=== PATIENT | female | born 1990 | race Caucasian/White ===

== ENCOUNTER 2017-07-25 22:39 | Emergency (ER) | payer OTHER ==
[~2017-07-25] VITALS: Ht 154.9 cm; Wt 77.3 kg
[2017-07-25 22:51] VITALS: BP 115/63
--- NOTE | 2017-07-25 22:52 | NUR ---
URINE COLLECTED. PT RETURNED TO LOBBY
--- NOTE | 2017-07-25 23:44 | NUR ---
PT AMBULATED TO ER BED 12
--- NOTE | 2017-07-25 23:58 | NUR ---
27 YO F TO ER FOR ABD PAIN. EPIGASTRICK PAIN X1 DAY, PT STATES "IT FEELS LIKE REFLUX". PT STATES BEING 16-17 WKS WITH A HX OF GALLSTONES. DENIES ANY N/V/D, ABD SOFT, ROUND, NON TENDER. BS ACTIVE X4, NO OTHER MEDICAL C/O. PT STATES PAIN 3/10. ER MD MADE AWARE, WILL CONTINUE TO MONITOR
--- NOTE | 2017-07-26 00:05 | NUR ---
Patient being evaluated by physician at bedside.
[2017-07-26 00:54] VITALS: BP 116/62
--- NOTE | 2017-07-26 00:54 | NUR ---
Patient discharged with v/s stable. Written and verbal after care instructions given and explained. Patient alert, oriented and verbalized understanding of instructions. Ambulatory with steady gait. All questions addressed prior to discharge. ID band removed. Patient advised to follow up with PMD. Rx of TUMS given. Patient educated on indication of medication including possible reaction and side effects. Opportunity to ask questions provided and answered.
== END 2017-07-26 00:54 | disposition home or self-care (01) ==
LOC: MED 22:39
DX: O99.612 Diseases of the digestive system complicating pregnancy, second trimester (principal); K80.20 Calculus of gallbladder without cholecystitis without obstruction; Z3A.17 17 weeks gestation of pregnancy
CPT/HCPCS: 81002; 81025; 99283

== ENCOUNTER 2017-09-03 20:48 | Observation (INO) | payer OTHER ==
[~2017-09-03] VITALS: Ht 154.9 cm; Wt 81.7 kg
[2017-09-03 18:23] VITALS: BP 101/54
[2017-09-03 21:04] VITALS: BP 113/67
--- NOTE | 2017-09-03 21:07 | NUR ---
TO BED # 1 AMBULATORY, REPORT GIVEN TO ELISA RAMIREZ
--- NOTE | 2017-09-03 21:10 | NUR ---
PT ADMITS N/V X 1 DAY WITH EPIGASTRIC PAIN 8/10 RADIATION TO LOW BACK, PT 23 WEEKS ; SKIN IS INTACT, PINK/WARM/DRY; AAOX4, PERRL, WITH EVEN AND STEADY GAIT; LUNGS CLEAR BL, BREATHING UNLABORED; HR EVEN AND REGULAR, BL PERIPHERAL PULSES PRESENT; BS ACTIVE X4, NO TENDERNESS TO PALPATION, NO HEPATOSPLENOMEGALLY PALPATED, RESONANT TO PERCUSSION; PT DENIES ANY FEVER, CP, SOB, OR COUGH AT THIS TIME; PT STATES 8/10 PAIN AT THIS TIME; VSS; PATIENT POSITIONED FOR COMFORT; HOB ELEVATED; BEDRAILS UP X2; BED DOWN.
[2017-09-03] MEDS ORDERED: MORPHINE SULFATE 4 MG/ML SYR IVP ONE ×2 (21:20→23:15)
[2017-09-03] MEDS ORDERED: ONDANSETRON 4 MG/2 ML VIAL IVP ONE (21:20)
[2017-09-03] MEDS ORDERED: NACL 0.9% 1,000 ML IV SCH (21:20)
[2017-09-03] MEDS ORDERED: KETOROLAC 30 MG/ML VIAL IVP ONE (21:20)
[2017-09-03] MEDS ORDERED: FAMOTIDINE 20 MG/2 ML VIAL IVP ONE (21:20)
[2017-09-03 21:48] LABS: HEMATOCRIT 33.5 % (36-48); HEMOGLOBIN 11.3 g/dL (12.0-16.0); MEAN CORPUSCULAR HEMOGLOBIN 30 pg (27-31); MEAN CORPUSCULAR HGB CONC 34 g/dL (33-37); MEAN CORPUSCULAR VOLUME 88.2 fL (80-94); RED CELL DISTRIBUTION WIDTH 12.1 % (11.6-13.7); WHITE BLOOD COUNT (AUTO) 7.6 K/uL (4.8-10.8)
[2017-09-03 21:49] LABS: EOSINOPHILS % (AUTO) 0.4 % (0.0-4.0); MONOCYTES % (AUTO) 6.3 % (1.7-9.3); NEUTROPHILS % (AUTO) 80.1 % (42.2-75.2); PLATELET COUNT (AUTO) 237 K/uL (140-450)
[2017-09-03 21:50] LABS: BASOPHILS # (AUTO) 0.1 K/uL (0.00-0.22); BASOPHILS % (AUTO) 1.2 % (0.0-2.0); LYMPHOCYTES # (AUTO) 0.9 K/uL (2.5-16.5); MONOCYTES # (AUTO) 0.5 K/uL (0.8-1.0); NEUTROPHILS # (AUTO) 6.1 K/uL (1.8-7.7)
[2017-09-03] MEDS ORDERED: ACETAMINOPHEN EXTRA STRENGTH 500 MG TAB PO ONE (21:50)
[2017-09-03 22:19] LABS: BILIRUBIN,URINE 1+ (NEGATIVE); BLOOD, URINE NEGATIVE (NEGATIVE); COLOR,URINE YELLOW (YELLOW); LEUKOCYTE ESTERASE ,URINE 3+ (NEGATIVE); NITRITE, URINE NEGATIVE (NEGATIVE); UGLUCOSE NEGATIVE (NEGATIVE)
[2017-09-03 22:20] LABS: APPEARANCE,URINE HAZY (CLEAR)
[2017-09-03 22:30] LABS: ANION GAP 10.3 (8-16); CARBON DIOXIDE 25.9 mmol/L (21-32); POTASSIUM 3.2 mmol/L (3.5-5.1)
[2017-09-03 22:31] LABS: CREATININE 0.7 mg/dL (0.6-1.3); TOTAL BILIRUBIN 1.2 mg/dL (0.0-1.0)
[2017-09-03 22:32] LABS: ALBUMIN 2.9 g/dL (3.4-5.0)
[2017-09-03 23:35] LABS: RBC,URINE 0-5 (RARE) /HPF (0-5)
[2017-09-03] MEDS ORDERED: KCL 20 MEQ/WATER INJ PREMIX 100 ML IV ONE (23:35)
--- NOTE | 2017-09-04 00:23 | NUR ---
CALLED [facility] FOR BED FOR PT
[2017-09-04 00:55] VITALS: BP 121/76
--- NOTE | 2017-09-04 00:55 | NUR ---
Patient will be admitted to care of DR. NEWTON. Admited to MED SURG. Will go to room 119 A. Belongings list completed. Report to
--- NOTE | 2017-09-04 00:55 | NUR ---
RECEIVED PT FROM ER NURSE YUNIEL. PT ARRIVED TO UNIT VIA WHEELCHAIR. SHE IS AMBULATORY. AOX4-CALM. LEFT HAND IV #20G RUNNING KCL @50ML/HR AND NS 0.9% WIDE OPEN. SKIN INTACT. DISCUSSED PLAN OF CARE AND PT VERBALIZED UNDERSTANDING. NO S/S OF RESPIRATORY DISTRESS OR DISCOMFORT NOTED AT THIS TIME. ORIENTED PT TO ROOM, BED, CALL LIGHT, PHONE AND RESTROOM. BED IN LOWEST POSITION, BOTH SIDE RAILS UP AND BED BREAKS LOCKED. BED SIDE TABLE AND CALL LIGHT ARE WITHIN REACH. MRSA COLLECTED. VITAL SIGNS TOLERATED WELL AND WITHIN NORMAL LIMITS. WILL CONTINUE TO MONITOR.
--- NOTE | 2017-09-04 01:40 | NUR ---
KCL IS COMPLETE. NA 0.9% BAG WAS INFUSING WITH THE KCL TO DECREASE PAIN. PT TOLERATED WELL. DISCONNECTED IVF. NO ORDERS FOR IVF AT THIS TIME SINCE BAG OF NS THAT WAS WIDE OPEN WAS COMPLETED IN ER PER ER NURSE ELISA.
[2017-09-04] MEDS ORDERED: ONDANSETRON 4 MG/2 ML VIAL IVP PRN (01:50)
[2017-09-04] MEDS ORDERED: ACETAMINOPHEN 325 MG TAB PO PRN (01:50)
[2017-09-04] MEDS ORDERED: MORPHINE SULFATE 2 MG/ML SYR IVP PRN ×2 (01:50→11:32)
--- NOTE | 2017-09-04 01:50 | NUR ---
DR. JOSE IS ON-CALL FOR DR. PICKENS. SPOKE TO MD ABOUT DIET AND PAIN MEDICATION ORDERS. HE ADVISED ME TO CONTINUE PREVIOUSLY USED MEDICATIONS FROM ER SUCH MORPHINE, ZOFRAN AND TYLENOL. SHE IS TO CONTINUE A REGULAR DIET.
--- NOTE | 2017-09-04 03:15 | NUR ---
PT C/O EPIGASTRIC PAIN 11/22. PT WAS GIVEN MORPHINE IN THE ER AND WAS TOLD THE RISKS AND BENEFITS OF TAKING MORPHINE FOR SEVERE PAIN. READ WARNING LABEL ON USING MORPHINE WHILE HOWEVER SHE SAID SHE STILL WANTED THE MEDICATION. MORPHINE WAS ADMINISTERED. PT TOLERATED WELL. NO S/S OF RESPIRATORY DISTRESS. WILL CONTINUE TO MONITOR.
--- NOTE | 2017-09-04 04:30 | NUR ---
PT REQUESTING SNACK. GAVE JELLO AND CRANBERRY JUICE. ADVISED PT ON POSSIBLE EPIGASTRIC PAIN WITH FOOD DUE TO PANCREATITIS. PT STILL DECIDED TO HAVE SNACK. WILL CONTINUE TO MONITOR.
--- NOTE | 2017-09-04 05:09 | NUR ---
L&D NURSE MIYA CHECKED THE HEART AND SAID IT WAS IN A RANGE BETWEEN 133-140. PT TOLERATED WELL. NO S/S OF RESPIRATORY DISTRESS OR DISCOMFORT AT THIS TIME. WILL CONTINUE TO MONITOR. Addendum: 09/04/17 at 0511 by Linda Aguirre RN HEART TONES ARE WITHIN NORMAL LIMITS.
--- NOTE | 2017-09-04 07:25 | NUR ---
ENDORSED PT CARE TO DAY SHIFT NURSE ESA FOR CONTINUITY OF CARE.
--- NOTE | 2017-09-04 07:30 | NUR ---
RECEIVED ON BED AAOX4. NO SOB NOTED. NO C/O PAIN AT THIS TIME. IV TO LT HAND PATENT AND INTACT. CHEST CLEAR. ABDOMEN SOFT, BOWEL SOUNDS PRESENT. NO EDEMA NOTED. INSTRUCTED PT TO CALL FOR ASSISTANCE. CALL LIGHT WITHIN REACH, PT VERBALIZED UNDERSTANDING.
[2017-09-04 08:00] VITALS: BP 115/67
--- NOTE | 2017-09-04 08:42 | NUR ---
SPOKE WITH DR. Jeremias KELLER OVER THE PHONE REGARDING THE CONSULT. DR. KELLER STATED HE WILL COME TO SEE PT TODAY. DR. APPIAH NOTIFIED.
[2017-09-04] MEDS ORDERED: POTASSIUM CHL 20MEQ/D5-NS 1,000 ML IV SCH (08:45)
--- NOTE | 2017-09-04 09:58 | NUR ---
SPOKE WITH ROBERTO FROM [facility] ([facility]ER[facility]) AND UPDATED WITH PT'S STATUS. WES STATED SHE WILL CALL DR. APPIAH BACK IF PT IS ACCEPTED.
--- NOTE | 2017-09-04 10:13 | NUR ---
PATIENT HAS BEEN SCREENED AND CATEGORIZED MODERATE NUTRITION RISK. PATIENT WILL BE SEEN WITHIN 3-5 DAYS OF ADMISSION. 09/06/17 09/08/[address]
--- NOTE | 2017-09-04 10:15 | NUR ---
HEART TONE MONITORING DONE BY L&D ASHLEY RENATO. 156 BEATS/MIN.
--- NOTE | 2017-09-04 10:43 | NUR ---
DR. APPIAH RECEIVED A CALL FROM DR. BARTH THAT HE IS NOT ACCEPTING THE PT GI CONSULT. DR APPIAH STATED HE WILL TRY [facility]. [facility] NOTIFIED. PERFECTO TOOL OPERATOR MADE AWARE.
--- NOTE | 2017-09-04 11:17 | NUR ---
JENNIFER MCQUEEN SPOKE WITH DR. APPIAH REGARDING TRANSFER AND HE GAVE HIS NUMBER TO GIVE TO [facility] IF NEEDED FOR DOCTOR TO DOCTOR REPORT. INITIAL REVIEW AND ORDER FOR TRANSFER TO HIGHER LEVEL OF CARE FAXED TO [facility] [phone] PH# [phone]. SPOKE WITH [facility] JENNIFER SULTANA AND SHE SAID SHE WILL WORK ON IT AND WILL CALL BACK WITH THE AUTHORIZATIONS FOR THE TRANSFER. FAXED CLINICAL INQUIRY TO [facility] [phone] PH# [phone] AND SPOKE WITH JOSE WHO CONFIRMED THAT THEY HAVE RECEIVED THE FAX AND I GAVE HER THE NUMBER TO DR. APPIAH FOR DOCTOR TO DOCTOR REPORT IF NEEDED AND THE NUMBER TO THE NURSING STATION WHERE PATIENT IS IN CASE THE TRANSFER HAPPENS AT A LATER TIME TODAY. Addendum: 09/04/17 at 1244 by Anya Echevarria CM PER JOSE OF [facility], THEY WILL WORK ON IT AND SEE IF THEY CAN GET AN ACCEPTING DOCTOR.
[2017-09-04 11:19] LABS: ALBUMIN 2.6 g/dL (3.4-5.0); ANION GAP 9.9 (8-16); CARBON DIOXIDE 24.1 mmol/L (21-32); CREATININE 0.6 mg/dL (0.6-1.3); TOTAL BILIRUBIN 0.9 mg/dL (0.0-1.0)
--- NOTE | 2017-09-04 12:39 | NUR ---
CM NOTE ER [facility] JENNIFER SULTANA PH# [phone], FOR [facility] AUTH# [id number], FOR [facility] AUTH# [id number]. CHARGE NURSE JU SUN.
--- NOTE | 2017-09-04 14:13 | NUR ---
CM NOTE PER STEPHEN OF [facility] PH# [phone], THEY ARE STILL WORKING ON GETTING AN ACCEPTING OB DOCTOR. I MADE SURE THAT STEPHEN OF [facility] HAS THE NUMBER OF DR. APPIAH FOR DOCTOR TO DOCTOR REPORT AND THE NUMBER TO THE NURSING STATION WHERE PATIENT IS IN CASE THE TRANSFER HAPPENS AT A LATER TIME TODAY. CHARGE NURSE JU SUN.
--- NOTE | 2017-09-04 15:20 | NUR ---
STEPHEN FROM [facility] CALLED ( ), PT'S ACCEPTING PHYSICIAN IS DR. MELISSA. PT WILL BE GOING TO UNIT 3200. NUMBER TO CALL FOR REPORT: [phone]. CHARGE NURSE JU NOTIFIED.
--- NOTE | 2017-09-04 16:00 | NUR ---
REPORT GIVEN TO ELIANA-[facility]AS[facility]OOM ATTENDANT NURSE AT [facility] [address]. ELIANA STATED THEY WILL GIVE THE ROOM NUMBER WHEN THE PT GET THERE.
--- NOTE | 2017-09-04 16:30 | NUR ---
TRANSFER PAPER WORKS SIGNED BY PT AND IS IN AGREEMENT OF THE TRANSFER FOR HIGHER LEVEL OF CARE. PT VERBALIZED UNDERSTANDING. IV TO LT HAND HEP LOCK. [facility] WHEELED PT OUT IN STABLE CONDITION. AAOX4. NO COMPLAINTS MADE, NOTIFIED EFRAIN ALDANA AT [place] REGARDING THE TIME OF DISCHARGE FROM [facility].
--- NOTE | 2017-09-05 08:00 | NUR ---
FAXED DISCHARGE SUMMARY TO [facility] [phone]
--- NOTE | 2017-09-09 18:58 | NUR ---
LATE ENTRY FOR 09/04/2017@1630: IV FLUID DISCONTINUED.
== END 2017-09-04 16:30 | disposition short-term general hospital (02) ==
LOC: EDSTATUS 20:48 → MED 20:48 → MTU 09-04 00:18
PROVIDERS: ADMIT Hospitalist; ATTEND Hospitalist
DX: O99.612 Diseases of the digestive system complicating pregnancy, second trimester (principal); K85.10 Biliary acute pancreatitis without necrosis or infection; Z3A.23 23 weeks gestation of pregnancy
CPT/HCPCS: 36415; 76705; 80053; 81001; 82150; 83690; 84703; 85025; 87081; 87086; 96361; 96374; 96375; 99285; G0378; J2270; J2405; J3480; J3490; Q0092

== ENCOUNTER 2017-12-14 16:25 | Observation (INO) | payer OTHER ==
[~2017-12-14] VITALS: Ht 154.9 cm; Wt 78.0 kg
[2017-12-14 16:57] VITALS: BP 108/59
== END 2017-12-14 17:50 | disposition home or self-care (01) ==
LOC: MLD 16:25
PROVIDERS: ADMIT Obstetrics & Gynecology; ATTEND Obstetrics & Gynecology
DX: O26.893 Other specified pregnancy related conditions, third trimester (principal); R10.9 Unspecified abdominal pain; Z3A.37 37 weeks gestation of pregnancy
CPT/HCPCS: G0378

== ENCOUNTER 2017-12-21 18:55 | Inpatient (IN) | payer OTHER ==
[~2017-12-21] VITALS: Ht 153.4 cm; Wt 79.4 kg
[2017-12-21] MEDS ORDERED: AMPICILLIN 2,000 MG in NACL 0.9% MINI-BAG PLUS 100 ML IV SCH (19:40)
[2017-12-21] MEDS ORDERED: OXYTOCIN 10 UNITS/ML VIAL IM SCH (19:40)
[2017-12-21] MEDS ORDERED: LACTATED RINGERS 500 ML IV ONE (19:40)
[2017-12-21] MEDS ORDERED: AMPICILLIN 1,000 MG in NACL 0.9% MINI-BAG PLUS 50 ML IV SCH (20:00)
[2017-12-21 20:04] VITALS: BP 114/59
[2017-12-21] MEDS: LACTATED RINGERS 1,000 ML IV SCH ×2 (20:40→21:40)
[2017-12-21 20:42] LABS: BASOPHILS % (AUTO) 0.3 % (0.0-2.0); EOSINOPHILS % (AUTO) 0.1 % (0.0-4.0); HEMATOCRIT 30.5 % (36-48); HEMOGLOBIN 10.2 g/dL (12.0-16.0); LYMPHOCYTES # (AUTO) 1.4 K/uL (2.5-16.5); LYMPHOCYTES % (AUTO) 20.2 % (20.5-51.1); MEAN CORPUSCULAR HEMOGLOBIN 27 pg (27-31); MEAN CORPUSCULAR HGB CONC 34 g/dL (33-37); MEAN CORPUSCULAR VOLUME 79.6 fL (80-94); MONOCYTES # (AUTO) 0.5 K/uL (0.8-1.0); MONOCYTES % (AUTO) 7.7 % (1.7-9.3); NEUTROPHILS # (AUTO) 4.9 K/uL (1.8-7.7); NEUTROPHILS % (AUTO) 71.7 % (42.2-75.2); PLATELET COUNT (AUTO) 220 K/uL (140-450); RED BLOOD CELL COUNT(AUTO) 3.83 MIL/uL (4.20-5.40); WHITE BLOOD COUNT (AUTO) 6.9 K/uL (4.8-10.8)
[2017-12-21 20:43] LABS: BARBITURATE, URINE NEG. ng/ml (NEG <=200); BENZODIAZEPINE, URINE NEG. ng/mL (NEG <=200); CANNABINOID, URINE NEG. ng/mL (NEG <=50); COCAINE, URINE NEG. ng/mL (NEG <=300); OPIATE, URINE NEG. ng/mL (NEG <=2000); PHENCYCLIDINE SCREEN,URINE NEG. ng/mL (NEG <=25)
[2017-12-21 20:47] LABS: APPEARANCE,URINE CLEAR (CLEAR); COLOR,URINE YELLOW (YELLOW)
[2017-12-21 20:48] LABS: BILIRUBIN,URINE NEGATIVE (NEGATIVE); BLOOD, URINE NEGATIVE (NEGATIVE); LEUKOCYTE ESTERASE ,URINE NEGATIVE (NEGATIVE); NITRITE, URINE NEGATIVE (NEGATIVE); UGLUCOSE NEGATIVE (NEGATIVE)
[2017-12-21] MEDS ORDERED: BUPIVACAINE 0.125%/NS PREMIX 250 ML ONE (21:48)
[2017-12-21] MEDS ORDERED: BUPIVACAINE 0.125%/NS PREMIX 250 ML EPI SCH (22:10)
[2017-12-22] MEDS: LACTATED RINGERS 1,000 ML IV SCH (03:52)
[2017-12-22] MEDS ORDERED: OXYTOCIN 20 UNITS/LR PREMIX 1,000 ML IV ONE (05:14)
[2017-12-22] MEDS ORDERED: OXYTOCIN 10 UNITS/ML VIAL ONE (05:14)
[2017-12-22] MEDS ORDERED: LIDOCAINE 1% 0 ML ONE (05:15)
[2017-12-22] MEDS ORDERED: OXYTOCIN 20 UNITS in LACTATED RINGERS 1,000 ML IV SCH (06:26)
[2017-12-22] MEDS ORDERED: MEASLES, MUMPS, AND RUBELLA 1 VIAL SQVAC PRN (06:30)
[2017-12-22] MEDS ORDERED: BISACODYL 5 MG TABEC PO PRN (06:30)
[2017-12-22] MEDS ORDERED: ACETAMINOPHEN 325 MG TAB PO PRN (06:30)
--- NOTE | 2017-12-22 08:21 | NUR ---
PATIENT HAS BEEN SCREENED AND CATEGORIZED LOW NUTRITION RISK. PATIENT WILL BE SEEN WITHIN 7 DAYS OF ADMISSION. 12/28/[address]
[2017-12-22] MEDS: IBUPROFEN 600 MG TAB PO PRN (11:50)
[2017-12-23] MEDS: IBUPROFEN 600 MG TAB PO PRN ×2 (03:37→18:01)
[2017-12-23 08:01] LABS: BASOPHILS % (AUTO) 0.5 % (0.0-2.0); EOSINOPHILS # (AUTO) 0.1 K/uL (0-0.4); EOSINOPHILS % (AUTO) 0.8 % (0.0-4.0); HEMATOCRIT 27.8 % (36-48); HEMOGLOBIN 9.1 g/dL (12.0-16.0); LYMPHOCYTES # (AUTO) 2.3 K/uL (2.5-16.5); LYMPHOCYTES % (AUTO) 28.8 % (20.5-51.1); MEAN CORPUSCULAR HEMOGLOBIN 26 pg (27-31); MEAN CORPUSCULAR HGB CONC 33 g/dL (33-37); MEAN CORPUSCULAR VOLUME 79.7 fL (80-94); MONOCYTES # (AUTO) 0.7 K/uL (0.8-1.0); MONOCYTES % (AUTO) 8.5 % (1.7-9.3); NEUTROPHILS # (AUTO) 4.8 K/uL (1.8-7.7); NEUTROPHILS % (AUTO) 61.4 % (42.2-75.2); PLATELET COUNT (AUTO) 169 K/uL (140-450); RED BLOOD CELL COUNT(AUTO) 3.48 MIL/uL (4.20-5.40); RED CELL DISTRIBUTION WIDTH 14.2 % (11.6-13.7); WHITE BLOOD COUNT (AUTO) 7.9 K/uL (4.8-10.8)
[2017-12-23] MEDS ORDERED: INFLUENZA VIRUS VACCINE QUAD 0.5 ML SYR IMVAC PRN (20:45)
[2017-12-24] MEDS ORDERED: FERR325E14 PO (11:27)
[2017-12-24] MEDS ORDERED: ACET-9800 PO (11:28)
[2017-12-24 12:56] LABS: HEPATITIS B SURFACE ANTIGEN NEGATIVE (NEGATIVE)
== END 2017-12-24 14:45 | disposition home or self-care (01) | DRG 560 ==
LOC: MLD 18:55 → OBSVTOIN 18:55 → MLD 19:46 → MFCC 12-22 09:43
PROVIDERS: ADMIT Obstetrics & Gynecology; ATTEND Obstetrics & Gynecology
PROC: 10E0XZZ Delivery of Products of Conception, External Approach (ICD-10-PCS; principal; 2017-12-22)
PROC: 00HU33Z Insertion of Infusion Device into Spinal Canal, Percutaneous Approach (ICD-10-PCS; 2017-12-22)
PROC: 3E0R3BZ Introduction of Anesthetic Agent into Spinal Canal, Percutaneous Approach (ICD-10-PCS; 2017-12-22)
PROC: 3E0234Z Introduction of Serum, Toxoid and Vaccine into Muscle, Percutaneous Approach (ICD-10-PCS; 2017-12-23)
PROC: 3E02340 Introduction of Influenza Vaccine into Muscle, Percutaneous Approach (ICD-10-PCS; 2017-12-23)
PROC: 3E0234Z Introduction of Serum, Toxoid and Vaccine into Muscle, Percutaneous Approach (ICD-10-PCS; 2017-12-23)
DX: O69.1XX0 Labor and delivery complicated by cord around neck, with compression, not applicable or unspecified (principal); Z23 Encounter for immunization; Z37.0 Single live birth; Z3A.38 38 weeks gestation of pregnancy
CPT/HCPCS: 36415; 51702; 59409; 76815; 80305; 81003; 85025; 86592; 86762; 86886; 86900; 86901; 87340; 90658; 90707; 90715; J2001; J2590; J3490; J7120; Q0092

== ENCOUNTER 2019-03-08 18:27 | Emergency (ER) | payer OTHER ==
[~2019-03-08] VITALS: Ht 153.7 cm; Wt 79.4 kg
[~2019-03-08 18:27] MED LIST: ACET-9800 PO; FERR325E14 PO
[2019-03-08 18:32] VITALS: BP 114/70
--- NOTE | 2019-03-08 21:47 | NUR ---
Called lobby x2. PATIENT LEFT WITHOUT BEING SEEN. NO FURTHER CARE PROVIDED FOR PATIENT.
== END 2019-03-08 21:47 | disposition left against medical advice (07) ==
LOC: MED 18:27
DX: Z53.21 Procedure and treatment not carried out due to patient leaving prior to being seen by health care provider (principal)